=== PATIENT | male | born 1975 | race Caucasian/White ===

== ENCOUNTER 2024-11-10 19:26 | Emergency (ER) | payer OTHER ==
[~2024-11-10] VITALS: Ht 165.1 cm; Wt 82.0 kg
[2024-11-10 19:43] VITALS: O2SAT 100
[2024-11-10 19:46] VITALS: TEMP 38.3
[2024-11-10 23:08] LABS: BASOPHILS % 0.3 % (0.0-2.0); EOSINOPHILS % 0.4 % (0.0-5.0); HEMATOCRIT. 40.8 % (42.0-52.0); HEMOGLOBIN. 14.1 g/dL (14.0-18.0); LYMPHOCYTES % 32.1 % (20.0-50.0); MEAN CORPUSCULAR HEMOGLOBIN 32.3 pg (28.0-32.0); MEAN CORPUSCULAR HGB CONC 34.6 g/dL (31.0-37.0); MEAN CORPUSCULAR VOLUME 93.4 fL (80.0-94.0); MONOCYTES % 14.7 % (2.0-8.0); NEUTROPHILS % 52.5 % (40.0-76.0); PLATELET 157 x1000/uL (130-400); RED BLOOD CELL COUNT 4.36 mill/uL (4.7-6.1); RED CELL DISTRIBUTION WIDTH 13.4 % (11.6-14.6); WHITE BLOOD COUNT 7.1 x1000/uL (4.5-11.0)
[2024-11-10 23:14] LABS: CHLORIDE 104 mEq/L (98-107); SODIUM 139 mEq/L (136-145)
[2024-11-10 23:15] LABS: CALCIUM 8.8 mg/dL (8.7-10.4); CARBON DIOXIDE 27 mEq/L (21-32)
[2024-11-10 23:20] LABS: CREATININE 0.9 mg/dL (0.6-1.3); GLUCOSE 107 mg/dL (70-105); UREA NITROGEN BLOOD 12 mg/dL (9-23)
[2024-11-10 23:23] VITALS: TEMP 100.9
[2024-11-10] MEDS: ACETAMINOPHEN 325MG TABLET PO ONE (23:23)
[2024-11-11 01:28] VITALS: BP 115/85; PULSE 82; RESP 20; O2SAT 99
[2024-11-11 03:38] LABS: INFLUENZA TYPE A Presumptive Negative (Pres. Neg.)
[2024-11-11 03:39] LABS: INFLUENZA TYPE B Presumptive Negative (Pres. Neg.)
== END 2024-11-11 01:28 | disposition home or self-care (01) ==
LOC: ER 19:26
DX: B34.9 Viral infection, unspecified (principal); Z20.822 Contact with and (suspected) exposure to COVID-19
CPT/HCPCS: 36415; 71045; 80048; 85025; 87426; 87804; 99284